=== PATIENT | female | born 1995 | race Caucasian/White ===

== ENCOUNTER 2016-07-17 05:36 | Outpatient (CLI) | payer BC ==
[~2016-07-17] VITALS: Ht 165.1 cm; Wt 68.3 kg
[~2016-07-17 05:36] MED LIST: AMOX-355 PO; ASPI1TAB22 PO; BIRTH CONTROL; CEPH-507 PO; HYDR-3583 PO; HYDR-3812 PO; HYOS0.1217 PO; IBP800T PO; LEVO500T69 PO; METR500T PO; ONDA-42 SL; OXYC-12 PO; PHEN-640 PO; SULF1TAB35 PO
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
== END 2016-07-17 11:38 ==
LOC: PREOP 05:36
PROVIDERS: ATTEND Otolaryngology Otolaryngology/Facial Plastic Surgery
DX: Z01.818 Encounter for other preprocedural examination (principal); J35.01 Chronic tonsillitis

== ENCOUNTER 2016-07-24 07:59 | Day surgery (SDC) | payer BC ==
[~2016-07-24] VITALS: Ht 165.1 cm; Wt 68.3 kg
--- OUTSIDE RECORDS SUMMARY | 2016-07-24 08:03 | XMS REPORT | Continuity of Care Document ---
Demographics Preferred Language Unknown Marital Status Unknown Yazidism Affiliation Unknown Race Unknown Ethnic Group Unknown Author Author [facility] Address Unknown Phone Unavailable Allergies Active Description Code Type Severity Reaction Onset Reported/Identified Relationship to Patient Clinical Status Yes No Known Drug Allergies [id number] Drug Allergy Unknown N/ A 03/17/2010 Yes sulfamethoxazole [id number] Drug Allergy Moderate N/A 07/17/2016 Yes trimethoprim [id number] Drug Allergy Moderate N/A 07/17/2016 Medications Problems Date Dx Coded Attending Type [...] 07/28/2014 Ot 995.91 SEPSIS 11/30/2014 SYLVIA SAUL MOLD CAR PUSHER Ot 620.2 01/19/2015 SYLVIA SAUL MOLD CAR PUSHER Ot 620.2 01/22/2015 SYLVIA SAUL MOLD CAR PUSHER Ot 620.2 05/09/2015 SYLVIA SAUL MOLD CAR PUSHER Ot 620.2 05/09/2015 CALIXTO GONZALEZ APRN Ot F12.10 CANNABIS ABUSE, UNCOMPLICATED 05/09/2015 CALIXTO GONZALEZ TISSUE REWINDER Ot F17.210 NICOTINE DEPENDENCE, CIGARETTES, UNCOMPL 05/09/2015 CALIXTO GONZALEZ TISSUE REWINDER Ot N39.0 URINARY TRACT INFECTION, SITE NOT SPECIF 05/10/2015 SYLVIA SAUL MOLD CAR PUSHER Ot 620.2 05/10/2015 SLIM CAMERON, OLEG Molina Ot F12.10 CANNABIS ABUSE, UNCOMPLICATED 05/10/2015 SLIM CAMERON, OLEG Molina Ot N39.0 URINARY TRACT INFECTION, SITE NOT SPECIF 05/10/2015 SLIM CAMERON, OLEG Molina Ot N73.9 FEMALE PELVIC INFLAMMATORY DISEASE, UNSP 05/10/2015 SLIM CAMERON, OLEG Molina Ot N76.0 ACUTE VAGINITIS 01/15/2016 SYLVIA SAUL Ot 620.2 OVARIAN CYST NEC/NOS 02/19/2016 SYLVIA SAUL Ot 620.2 OVARIAN CYST NEC/NOS 02/20/2016 SYLVIA SAUL Ot 620.2 OVARIAN CYST NEC/NOS 07/18/2016 JAYY CAMERON, KARO Rodriguez Ot J35.01 CHRONIC TONSILLITIS 07/18/2016 JAYY CAMERON, KARO Rodriguez Ot Z01.818 ENCOUNTER FOR OTHER PREPROCEDURAL EXAMIN Procedures Code [place] [address] PSYCH DIAGNOSTIC EVALUATION 09/17/2012 84344 PSYTX PT&/FAMILY 45 MINUTES 10/28/2012 03.31 07/26/2014 Results Encounters ACCT No. Visit Date/Time Discharge Status Pt. Type Provider Facility Loc./Unit Complaint [id number] 10/28/2012 07:50:00 Document Registration [id number] 09/17/2012 12:45:00 Document Registration
--- OUTSIDE RECORDS SUMMARY | 2016-07-24 08:03 | XMS REPORT | Continuity of Care Document ---
Demographics Preferred Language Unknown Marital Status Unknown Moravian Affiliation Unknown Race Unknown Ethnic Group Unknown Author Author [facility] Address Unknown Phone Unavailable Allergies Active Description Code Type Severity Reaction Onset Reported/Identified Relationship to Patient Clinical Status Yes No Known Drug Allergies [id number] Drug Allergy Unknown N/ A 03/17/2010 Yes sulfamethoxazole [id number] Drug Allergy Moderate N/A 07/17/2016 Yes trimethoprim [id number] Drug Allergy Moderate N/A 07/17/2016 Medications Problems [...] 07/28/2014 Ot 995.91 SEPSIS 11/30/2014 SYLVIA SAUL COMPUTER FORENSICS ANALYST Ot 620.2 01/19/2015 SYLVIA SAUL COMPUTER FORENSICS ANALYST Ot 620.2 01/22/2015 SYLVIA SAUL COMPUTER FORENSICS ANALYST Ot 620.2 05/09/2015 SYLVIA SAUL COMPUTER FORENSICS ANALYST Ot 620.2 05/09/2015 CALIXTO GONZALEZ APRN Ot F12.10 CANNABIS ABUSE, UNCOMPLICATED 05/09/2015 CALIXTO GONZALEZ AUTO BODY REPAIR TEACHER Ot F17.210 NICOTINE DEPENDENCE, CIGARETTES, UNCOMPL 05/09/2015 CALIXTO GONZALEZ AUTO BODY REPAIR TEACHER Ot N39.0 URINARY TRACT INFECTION, SITE NOT SPECIF 05/10/2015 SYLVIA SAUL COMPUTER FORENSICS ANALYST Ot 620.2 05/10/2015 SLIM CAMERON, OLEG Molina Ot F12.10 CANNABIS ABUSE, UNCOMPLICATED 05/10/2015 SLIM CAMERON, OLEG Molina Ot N39.0 URINARY TRACT INFECTION, SITE NOT SPECIF 05/10/2015 SLIM CAMERON, OLEG Molina Ot N73.9 FEMALE PELVIC INFLAMMATORY DISEASE, UNSP 05/10/2015 SLIM CAMERON, OLGE Molina Ot N76.0 ACUTE VAGINITIS 01/15/2016 SYLVIA SAUL Ot 620.2 OVARIAN CYST NEC/NOS 02/19/2016 SYLVIA SAUL Ot 620.2 OVARIAN CYST NEC/NOS 02/20/2016 SYLVIA SAUL Ot 620.2 OVARIAN CYST NEC/NOS 07/18/2016 JAYY CAMERON, KARO Rodriguez Ot J35.01 CHRONIC TONSILLITIS 07/18/2016 JAYY CAMERON, KARO Rodriguez Ot Z01.818 ENCOUNTER FOR OTHER PREPROCEDURAL EXAMIN Procedures Code Description [place] [address] PSYCH DIAGNOSTIC EVALUATION 09/17/2012 64802 PSYTX PT&/FAMILY 45 MINUTES 10/28/2012 03.31 07/26/2014 Results Encounters ACCT No. Visit Date/Time Discharge Status Pt. Type Provider Facility Loc./Unit Complaint [id number] 10/28/2012 07:50:00 Document Registration [id number] 09/17/2012 12:45:00 Document Registration
[2016-07-24 09:09] LABS: BASOPHILS % (AUTO) 1 % (0-10); EOSINOPHILS % (AUTO) 1 % (0-10); LYMPHOCYTES # (AUTO) 2.2 X 10^3 (1.0-4.0); LYMPHOCYTES % (AUTO) 37 % (12-44); MEAN CORPUSCULAR HEMOGLOBIN 31 PG (25-34); MEAN CORPUSCULAR HGB CONC 34 G/DL (32-36); MEAN CORPUSCULAR VOLUME 92 FL (80-99); MEAN PLATELET VOLUME 9.7 FL (7.4-10.4); MONOCYTES # (AUTO) 0.4 X 10^3 (0.0-1.0); MONOCYTES % (AUTO) 7 % (0-12); NEUTROPHILS # (AUTO) 3.2 X 10^3 (1.8-7.8); NEUTROPHILS % (AUTO) 55 % (42-75); PLATELET COUNT 229 10^3/uL (130-400); RED BLOOD COUNT 4.48 10^6/uL (4.35-5.85); RED CELL DISTRIBUTION WIDTH 13.3 % (10.0-14.5); WHITE BLOOD COUNT 5.9 10^3/uL (4.3-11.0)
[2016-07-24 09:20] VITALS: BP 120/78
[2016-07-24] MEDS ORDERED: LACTATED RINGERS 1,000 ML IV PRN (09:46)
--- NOTE | 2016-07-24 10:02 | Progress Note-Pre Operative ---
Pre-Operative Progress Note H&P Reviewed The H&P was reviewed, patient examined and no changes noted. Date H&P Reviewed: Jul 24, 2016 Time H&P Reviewed: 09:30 Pre-Operative Diagnosis: Rec Tons KARO HOPE MD Jul 24, 2016 10:02 am
[2016-07-24] MEDS ORDERED: LACTATED RINGERS 1,000 ML IV ONE (10:14)
[2016-07-24] MEDS ORDERED: SEVOFLURANE (ULTANE) 15 ML INHAL SOLN ONE (10:14)
[2016-07-24] MEDS ORDERED: ROCURONIUM 50 MG/5 ML (ZEMURON) VIAL IV ONE (10:14)
[2016-07-24] MEDS ORDERED: DEXAMETHASONE PF 10 MG/ML (DECADRON) VIAL ONE (10:14)
[2016-07-24] MEDS ORDERED: ONDANSETRON 4 MG/2 ML (SDV) Z0FRAN ONE (10:14)
[2016-07-24] MEDS ORDERED: fentaNYL INJECTION 100 MCG/2 ML AMP ONE (10:15)
[2016-07-24] MEDS ORDERED: MIDAZOLAM 2 MG/2 ML (VERSED) VIAL ONE (10:15)
[2016-07-24] MEDS ORDERED: NS IV 1000 ML 1,000 ML IV SCH (10:55)
--- NOTE | 2016-07-24 10:55 | Progress Note-Post Operative ---
Post-Operative Progess Note Pre-Operative Diagnosis Rec Tons Post-Operative Diagnosis same Post-Op Procedure Note Date of Procedure: Jul 24, 2016 Name of Procedure: Tonsillectomy Anesthesia Type get Estimated blood loss (mL): minimal Specimen(s) collected Tonsils KARO HOPE MD Jul 24, 2016 10:55 am
[2016-07-24] MEDS ORDERED: morphine INJ 10 MG/ML 1ML (SYR OR VIAL) ONE (10:56)
[2016-07-24] MEDS ORDERED: APAP 325 MG/10.15 ML LIQ (TYLENOL) UDC PO PRN (11:00)
[2016-07-24] MEDS ORDERED: HYDROcodone/APAP 7.5MG-325 MG/15 ML (LORTAB) UDC PO PRN (11:00)
[2016-07-24] MEDS: morphine INJ 10 MG/ML 1ML (SYR OR VIAL) IVP PRN ×2 (11:03→11:10)
[2016-07-24] MEDS ORDERED: ONDANSETRON 4 MG/2 ML (SDV) Z0FRAN IVP PRN (11:15)
[2016-07-24] MEDS ORDERED: MEPERIDINE (DEMEROL) INJ 50 MG/ML IVP PRN (11:15)
[2016-07-24] MEDS ORDERED: fentaNYL INJECTION 100 MCG/2 ML AMP IVP PRN (11:15)
[2016-07-24 11:50] VITALS: BP 120/78
[2016-07-24] MEDS ORDERED: DEXAINTSOL PO (12:01)
[2016-07-24] MEDS ORDERED: HYDR15SO8 PO (12:01)
[2016-07-24] MEDS ORDERED: TETRACAINESUCKERS MT (12:01)
[2016-07-24] MEDS ORDERED: AMOX250S5 PO (12:01)
[2016-07-24 12:20] VITALS: BP 98/58
[2016-07-24 12:50] VITALS: BP 97/52
[2016-07-24 13:50] VITALS: BP 100/59
[2016-07-24 14:15] VITALS: BP 100/59
== END 2016-07-24 14:15 | disposition home or self-care (01) ==
LOC: SDC 07:59
PROVIDERS: ATTEND Otolaryngology Otolaryngology/Facial Plastic Surgery
DX: J35.01 Chronic tonsillitis (principal)
CPT/HCPCS: 36415; 84703; 85025; 87081; 88304

== ENCOUNTER → 2017-01-29 | Outpatient (CLI) | payer BC ==
[~2017-01-29] MED LIST changes: +AMOX250S5 PO; +DEXAINTSOL PO; +HYDR15SO8 PO; +HYOS-6 PO; -HYOS0.1217 PO; +TETRACAINESUCKERS MT
--- NOTE | 2017-01-29 15:07 | Diagnostic Imaging Report ---
PROCEDURE: MRI left joint lower extremity without contrast. TECHNIQUE: Multiplanar, multisequence non contrast-enhanced MRI of the left lower extremity was accomplished. INDICATION: Left knee pain. History of ACL repair. FINDINGS: There is susceptibility artifact seen related to surgical repair of the ACL with fibers along the ACL graft demonstrating no definite tear. The PCL shows mild increased signal which may relate to an old injury. The lateral meniscus demonstrates focal abnormal signal near the apex of the posterior root/posterior horn junction suggestive of a focal radial tear. This is best seen on coronal images 13 and sagittal images 10 and 11. The medial meniscus appears intact. The lateral collateral ligament complex appears intact. The MCL appears intact. There is thickening of the patellar tendon and increased signal particularly proximally probably related to old injury. Overall, the cartilage in the 3 compartments appears to be preserved. There is a lobulated and septated Webster's cyst measuring 4.1 x 2 x 2 cm with evidence of leakage around it. IMPRESSION: 1. Leaking Webster's cyst. 2. Intact appearing ACL graft. 3. Suggestion of a focal radial tear at the junction of the posterior horn and posterior root of the lateral meniscus. Dictated by: Dictated on workstation # [id number]
== END ==
LOC: RAD 13:30
PROVIDERS: ATTEND Orthopaedic Surgery
DX: M71.22 Synovial cyst of popliteal space [Baker], left knee; M23.612 Other spontaneous disruption of anterior cruciate ligament of left knee
CPT/HCPCS: 73721

== ENCOUNTER 2017-09-14 09:59 | Outpatient (RCR) | payer BC ==
[~2017-09-14 09:59] MED LIST changes: +ACHD5005 PO; -HYDR-3812 PO
== END 2017-10-02 14:03 | disposition home or self-care (01) ==
PROVIDERS: ATTEND Physician Assistant Medical
DX: S83.92XA Sprain of unspecified site of left knee, initial encounter (principal); W01.0XXA Fall on same level from slipping, tripping and stumbling without subsequent striking against object, initial encounter

== ENCOUNTER → 2018-04-03 | Outpatient (CLI) | payer BC | LOC: MERGE 17:33 → LABNPT 17:33 | PROVIDERS: ATTEND Nurse Practitioner Family | DX: N89.8 Other specified noninflammatory disorders of vagina (principal) | CPT/HCPCS: 87070; 87205; 87491; 87591 ==